=== PATIENT | female | born 1980 | race African-American/Black ===

== ENCOUNTER → 2024-06-23 | Outpatient (CLI) | payer OTHER | END | disposition home or self-care (01) | LOC: MRI 08:19 | DX: E04.1 Nontoxic single thyroid nodule (principal); R10.2 Pelvic and perineal pain | CPT/HCPCS: 72197 ==

== ENCOUNTER 2024-10-12 11:17 | Outpatient (CLI) | payer OTHER | END 2024-10-12 11:19 | disposition home or self-care (01) | LOC: MAMO-SONO 11:17 | PROVIDERS: ATTEND Internal Medicine Endocrinology, Diabetes & Metabolism | DX: N64.0 Fissure and fistula of nipple (principal); Z12.31 Encounter for screening mammogram for malignant neoplasm of breast ==

== ENCOUNTER 2025-06-22 09:13 | Outpatient (CLI) | payer OTHER | END 2025-06-22 09:18 | disposition home or self-care (01) | LOC: SONOGRAMA 09:13 | DX: E04.2 Nontoxic multinodular goiter (principal) ==

== ENCOUNTER 2025-07-26 09:00 | Outpatient (CLI) | payer OTHER | END 2025-07-26 09:02 | disposition home or self-care (01) | LOC: NUCLEAR 09:00 | DX: I87.2 Venous insufficiency (chronic) (peripheral) (principal); I73.9 Peripheral vascular disease, unspecified ==

== ENCOUNTER 2025-07-27 08:59 | Outpatient (CLI) | payer OTHER | END 2025-07-27 09:00 | disposition home or self-care (01) | LOC: NUCLEAR 08:59 | DX: I87.2 Venous insufficiency (chronic) (peripheral) (principal); I73.9 Peripheral vascular disease, unspecified ==